=== PATIENT | male | born 1985 | race Caucasian/White ===

== ENCOUNTER 2017-07-04 20:29 | Emergency (ER) | payer OTHER ==
[~2017-07-04] VITALS: Ht 188 cm; Wt 149.1 kg
[2017-07-04 21:00] LABS: BASOPHILS # (AUTO) 0.02 x10^3/uL (0-0.1); BASOPHILS % (AUTO) 0 % (0-1); EOSINOPHILS # (AUTO) 0.11 x10^3/uL (0-0.4); EOSINOPHILS % (AUTO) 1 % (1-7); LYMPHOCYTES # (AUTO) 3.14 x10^3/uL (1-3.4); LYMPHOCYTES % (AUTO) 35 % (22-44); MD NO; MEAN CORPUSCULAR HEMOGLOBIN 30.2 pg (27.5-34.5); MEAN CORPUSCULAR HGB CONC 34.1 g/dL (33.2-36.2); MEAN CORPUSCULAR VOLUME 88.6 fL (81-97); MONOCYTES % (AUTO) 6 % (2-9); NEUTROPHILS # (AUTO) 5.22 x10^3/uL (1.8-6.8); NEUTROPHILS % (AUTO) 58 % (42-75); PLATELET COUNT 240 x10^3/uL (130-400); RED CELL DISTRIBUTION WIDTH 14.7 % (9.4-14.8)
[2017-07-04 21:12] LABS: ALANINE AMINOTRANSFERASE 66 U/L (12-78); ALBUMIN 4.3 g/dL (3.4-5.0); ANION GAP 6 mmol/L (5-15); CALCIUM 8.8 mg/dL (8.5-10.1); CHLORIDE 103 mmol/L (98-107); CREATININE 1.13 mg/dL (0.7-1.3)
[2017-07-04 21:16] LABS: ALKALINE PHOSPHATASE 69 U/L (45-117); BILIRUBIN,TOTAL 0.6 mg/dL (0.2-1.0); TOTAL PROTEIN 7.5 g/dL (6.4-8.2); TROPONIN I < 0.015 ng/mL (0.000-0.045)
[2017-07-04 23:02] VITALS: BP 130/87
== END 2017-07-04 23:03 | disposition home or self-care (01) ==
LOC: ED 21:32
DX: R07.89 Other chest pain (principal); I10 Essential (primary) hypertension
CPT/HCPCS: 36415; 71045; 80053; 84484; 85025; 85379; 93005; 99285